=== PATIENT | female | born 1965 | race Caucasian/White ===

== ENCOUNTER 2020-12-24 13:51 | Emergency (ER) | payer BC ==
[~2020-12-24] VITALS: Ht 165.1 cm; Wt 61.2 kg
[~2020-12-24 13:51] MED LIST: ACETAMINOPHEN-1 EAC1 PO; AMOXICILLIN500 M1 PO; AUGMENTIN 875875 MG PO; DAY TIME COLD-237 ML PO; MUCINEX TA600 MG/TA2 PO; NOHOMEMEDICATIONS; NORCO 5-325 TA1 EACH PO; PREDNISONE 5 MG5 MG PO; PROMETHAZINE-D120 ML PO; TYLENOL325 MG PO; VALACYCLOVIR1000 MG PO
[2020-12-24 15:40] VITALS: BP 118/68
== END 2020-12-24 15:42 | disposition home or self-care (01) ==
LOC: M.ERS 13:51
DX: M25.561 Pain in right knee (principal); M25.571 Pain in right ankle and joints of right foot; M25.521 Pain in right elbow; Z90.710 Acquired absence of both cervix and uterus; Z98.890 Other specified postprocedural states; Z85.41 Personal history of malignant neoplasm of cervix uteri; W18.40XA Slipping, tripping and stumbling without falling, unspecified, initial encounter; Y93.89 Activity, other specified; Y92.89 Other specified places as the place of occurrence of the external cause; Y99.8 Other external cause status